=== PATIENT | female | born 1945 | race Caucasian/White ===

== ENCOUNTER → 2017-03-16 | Outpatient (CLI) | payer MEDICARE, BC, OTHER ==
--- NOTE | 2017-03-18 08:17 | MM ---
Reason for exam: screening (asymptomatic). Last mammogram was performed 1 year and 5 months ago. History: Patient is postmenopausal. Family history of breast cancer in paternal cousin at age 40. Took estrogen for 2 years. Took progesterone for 2 years. Physical Findings: A clinical breast exam by your physician is recommended on an annual basis and results should be correlated with mammographic findings. MG 3D Screening Mammo W/Cad Bilateral CC and MLO view(s) were taken. Prior study comparison: October 07, 2015, bilateral MG 3d screening mammo w/cad. October 05, 2014, bilateral MG screening mammo w CAD. There are scattered fibroglandular densities. No suspicious abnormality. No significant changes when compared with prior studies. ASSESSMENT: Negative, BI-RAD 1 RECOMMENDATION: Routine screening mammogram of both breasts in 1 year.
== END | disposition home or self-care (01) ==
LOC: RADMAMWWP 10:59
PROVIDERS: ATTEND Internal Medicine
DX: Z12.31 Encounter for screening mammogram for malignant neoplasm of breast (principal)
CPT/HCPCS: 77063; G0202

== ENCOUNTER → 2018-04-22 | Outpatient (CLI) | payer MEDICARE, BC, OTHER ==
[2018-04-22 13:31] LABS: Basophils # (A) 0.1 k/uL (0-0.2); Basophils % (A) 1 %; Eosinophils # (A) 0.5 k/uL (0-0.7); Eosinophils % (A) 4 %; HCT 45.5 % (34.0-46.0); HGB 14.9 gm/dL (11.4-16.0); Lymphocytes # (A) 1.9 k/uL (1.0-4.8); Lymphocytes % (A) 17 %; MCH 31.5 pg (25.0-35.0); MCHC 32.7 g/dL (31.0-37.0); MCV 96.4 fL (80.0-100.0); Mean Platelet Volume 6.9; Monocytes # (A) 1.1 k/uL (0-1.0); Monocytes % (A) 10 %; Neutrophils # (A) 7.3 k/uL (1.3-7.7); Neutrophils % (A) 66 %; Platelet Count 268 k/uL (150-450); RBC 4.72 m/uL (3.80-5.40); RDW 14.4 % (11.5-15.5); WBC 11.2 k/uL (3.8-10.6)
[2018-04-22 19:14] LABS: Albumin 4.3 g/dL (3.80-4.90); Albumin/Globulin Ratio 2.05 (1.20-2.10); Anion Gap 8.8 mmol/L (4.00-12.00); Calcium 9.3 mg/dL (8.7-10.3); Carbon Dioxide 30.2 mmol/L (21.6-31.8); Globulin 2.1 g/dL (2.1-3.7); Potassium 3.8 mmol/L (3.5-5.5); Total Bilirubin 0.8 mg/dL (0.2-1.2); Total Protein 6.4 g/dL (6.2-8.2)
== END ==
LOC: LABWHC1 12:18
PROVIDERS: ATTEND Internal Medicine
DX: I10 Essential (primary) hypertension (principal); E78.2 Mixed hyperlipidemia; M10.00 Idiopathic gout, unspecified site
CPT/HCPCS: 36415; 80053; 84443; 84550; 85025

== ENCOUNTER → 2018-05-20 | Outpatient (CLI) | payer MEDICARE, BC, OTHER ==
--- NOTE | 2018-05-23 10:51 | MM ---
Reason for exam: screening (asymptomatic). Last mammogram was performed 1 year and 2 months ago. History: Patient is postmenopausal. Family history of breast cancer in paternal cousin at age 40. Took estrogen for 2 years. Took progesterone for 2 years. Physical Findings: A clinical breast exam by your physician is recommended on an annual basis and results should be correlated with mammographic findings. MG 3D Screening Mammo W/Cad Bilateral CC and MLO view(s) were taken. Prior study comparison: March 16, 2017, bilateral MG 3d screening mammo w/cad. October 07, 2015, bilateral MG 3d screening mammo w/cad. There are scattered fibroglandular densities. No significant changes when compared with prior studies. ASSESSMENT: Benign, BI-RAD 2 RECOMMENDATION: Routine screening mammogram of both breasts in 1 year.
== END | disposition home or self-care (01) ==
LOC: RADMAMWWP 13:37
PROVIDERS: ATTEND Internal Medicine
DX: Z12.31 Encounter for screening mammogram for malignant neoplasm of breast (principal)
CPT/HCPCS: 77063; 77067

== ENCOUNTER → 2019-06-20 | Outpatient (CLI) | payer MEDICARE, BC, OTHER ==
--- NOTE | 2019-06-20 10:44 | XR ---
EXAMINATION TYPE: XR chest 2V DATE OF EXAM: 06/20/2019 COMPARISON: 05/19/2011 TECHNIQUE: PA and lateral views submitted. HISTORY: Cough FINDINGS: The lungs are clear and there is no pneumothorax, pleural effusion, or focal pneumonia. Atheroscler otic change aorta. Mild cardiomegaly. Surgical clips in the abdomen. Hypertrophic and degenerative ch elbert of the spine. IMPRESSION: 1. No acute process.
== END | disposition home or self-care (01) ==
LOC: RADXRMAIN 10:12
PROVIDERS: ATTEND Internal Medicine
DX: R05 Cough (principal)
CPT/HCPCS: 71046

== ENCOUNTER → 2019-07-14 | Outpatient (CLI) | payer MEDICARE, BC, OTHER ==
--- NOTE | 2019-07-17 14:18 | MM ---
Reason for exam: screening (asymptomatic). Last mammogram was performed 1 year and 2 months ago. History: Patient is postmenopausal. Family history of breast cancer in paternal cousin at age 40. Took estrogen for 2 years. Took progesterone for 2 years. Physical Findings: A clinical breast exam by your physician is recommended on an annual basis and results should be correlated with mammographic findings. MG 3D Screening Mammo W/Cad Bilateral CC and MLO view(s) were taken. Prior study comparison: May 20, 2018, bilateral MG 3d screening mammo w/cad. March 16, 2017, bilateral MG 3d screening mammo w/cad. There are scattered fibroglandular densities. There is no discrete abnormality. No significant changes when compared with prior studies. ASSESSMENT: Negative, BI-RAD 1 RECOMMENDATION: Routine screening mammogram of both breasts in 1 year.
== END | disposition home or self-care (01) ==
LOC: RADMAMWWP 13:34
PROVIDERS: ATTEND Internal Medicine
DX: Z12.31 Encounter for screening mammogram for malignant neoplasm of breast (principal)
CPT/HCPCS: 77063; 77067

== ENCOUNTER → 2019-12-19 | Outpatient (CLI) | payer MEDICARE, OTHER ==
--- NOTE | 2019-12-19 16:13 | CT ---
EXAMINATION TYPE: CT angio chest DATE OF EXAM: 12/19/2019 COMPARISON: Correlation cardiac echo report from 11/20/2019 suggesting an aortic root dimension of 4.7 cm. HISTORY: 74-year-old female I71.2 Thoracic aortic aneurysm w/o rupture. TECHNIQUE: Contiguous axial scanning of the chest performed with IV Contrast, patient injected with 1 00 mL of Isovue 370. Coronal/sagittal MIP reconstructions performed. 3-D reconstructions generated on dedicated independent workstation. CT DLP: 529.0 mGycm Automated exposure control for dose reduction was used. FINDINGS: Heart upper limits of normal in size. There is some left atrial dilatation. No pericardial effusion. Maximal aortic root caliber measured at 3.6 cm (sagittal image 52) Ascending aorta ectatic at 3.9 cm. Mild otoscopic arch calcifications with conventional branching anatomy. Upper descending thoracic aorta borderline ectatic at 2.5 cm. Lower descending thoracic aorta normal caliber at 2.1 cm. No thoracic lymphadenopathy by CT size criteria. No consolidation or pleural effusion. Some strandy atelectasis at the posterior lung bases. Small hiatal hernia. Slight 9 mm nodularity of the left adrenal gland, axial image 54. Cholecystectomy clips. Bones: Moderate endplate spondylosis mid to lower thoracic spine. IMPRESSION: 1. MAXIMAL MEASURED AORTIC CALIBER ON THE CT IMAGES IS 3.6 CM WHICH IS MILDLY ECTATIC. 2. ADDITIONAL ECTATIC ASCENDING AORTA 3.9 CM. 3. BORDERLINE HEART SIZE WITH SOME LEFT ATRIAL DILATATION. 4. SMALL HIATAL HERNIA. 5. 9 MM LEFT ADRENAL NODULE IS NONSPECIFIC. A 12 MONTH FOLLOW-UP EXAM TO ENSURE STABILITY.
== END | disposition home or self-care (01) ==
LOC: RADCTMAIN 12:47
PROVIDERS: ATTEND Nurse Practitioner Adult Health
DX: I77.810 Thoracic aortic ectasia (principal); I51.7 Cardiomegaly; Z88.5 Allergy status to narcotic agent; Z88.8 Allergy status to other drugs, medicaments and biological substances
CPT/HCPCS: 82565; 84520; 71275; 36415; Q9967

== ENCOUNTER → 2020-01-18 | Outpatient (CLI) | payer MEDICARE, OTHER ==
--- NOTE | 2020-01-18 14:54 | US ---
EXAMINATION TYPE: US kidneys/renal and bladder DATE OF EXAM: 01/18/2020 COMPARISON: CT Chest December 19, 2019. CLINICAL HISTORY: R10.9 Left flank pain. Pt states left flank pain that has now stopped EXAM MEASUREMENTS: Right Kidney: 9.7 x 4.8 x 4.7 cm Left Kidney: 10.3 x 5.4 x 4.1 cm Right Kidney: Slight renal pelvic fullness, otherwise appeared wnl Left Kidney: Slight renal pelvic fullness, otherwise appeared wnl Bladder: wnl Bilateral Jets seen: Yes The urinary bladder is satisfactorily distended. Bilateral ureteral jets are seen. Some fullness of the bilateral renal pelvises. No concerning renal masses on images saved. IMPRESSION: Suspect new mild bilateral hydronephrosis but visualization of bilateral distal ureter je ts suggest complete ureter obstruction is not present.
== END | disposition home or self-care (01) ==
LOC: RADUSWWP 14:11
PROVIDERS: ATTEND Internal Medicine
DX: R10.9 Unspecified abdominal pain (principal)
CPT/HCPCS: 76770

== ENCOUNTER → 2020-09-19 | Outpatient (CLI) | payer MEDICARE, OTHER ==
--- NOTE | 2020-09-23 09:49 | MM ---
Reason for exam: screening (asymptomatic). Last mammogram was performed 1 year and 2 months ago. History: Patient is postmenopausal. Family history of breast cancer in paternal cousin at age 40. Took estrogen for 2 years. Took progesterone for 2 years. Physical Findings: A clinical breast exam by your physician is recommended on an annual basis and results should be correlated with mammographic findings. MG 3D Screening Mammo W/Cad Bilateral CC and MLO view(s) were taken. Prior study comparison: July 14, 2019, bilateral MG 3d screening mammo w/cad. May 20, 2018, bilateral MG 3d screening mammo w/cad. There are scattered fibroglandular densities. No significant changes when compared with prior studies. ASSESSMENT: Benign, BI-RAD 2 RECOMMENDATION: Routine screening mammogram of both breasts in 1 year.
== END | disposition home or self-care (01) ==
LOC: RADMAMWWP 09:10
PROVIDERS: ATTEND Internal Medicine
DX: Z12.31 Encounter for screening mammogram for malignant neoplasm of breast (principal); Z78.0 Asymptomatic menopausal state; Z80.3 Family history of malignant neoplasm of breast
CPT/HCPCS: 77063; 77067

== ENCOUNTER → 2021-01-13 | Outpatient (CLI) | payer MEDICARE, OTHER ==
--- NOTE | 2021-01-13 15:54 | CT ---
CT CHEST FOR PULMONARY EMBOLISM. EXAMINATION TYPE: CT angio chest DATE OF EXAM: 01/13/2021 INDICATION: Thoracic aortic aneurysm w/out rupture. Pt not reporting any issues. CT DLP: 988.80 mGycm, Automated exposure control for dose reduction was used. CONTRAST: Patient injected with 100 mL of Isovue 370. COMPARISON: 12/19/2019 TECHNIQUE: CT of the chest is performed on a spiral scan at 2 mm thick sections. Study is performed with intravenous contrast timed for evaluation of thoracic aneurysm. This will limit additional port ions of the evaluation. 3-D MIP images reconstructed by the technologist are reviewed on the compute r in the coronal and sagittal planes. FINDINGS: No persistent filling defects are evident to suggest an acute pulmonary embolism. No mediastinal or hilar adenopathy enlarged by CT criteria is evident. The main pulmonary artery roberto meter at the bifurcation is 2.5 cm. There is mild cardiomegaly. Aorta: The aorta at the aortic root measures 2.9 cm. Previous measurement 3.2. The aorta at the main pulmonary artery 3.6 cm. Previous measurement 3.9. Transverse dimension of the aorta at the aortic ar ch is 2.4 cm. Descending thoracic aorta just above the diaphragm is 2.5 cm. Previous measurement 2.1 cm Lung windows are clear. Limited CT section through the upper abdomen. There is fatty infiltration through the pancreas. Gallb ladder is surgically absent. IMPRESSIONS: 1. Current thoracic aortic measurements are generally smaller than the previous measurements. There i s mild fusiform prominence of the mid descending thoracic aorta at the main pulmonary artery currentl y measuring 3.6 cm. Monitoring can be performed.
== END | disposition home or self-care (01) ==
LOC: RADCTMAIN 13:49
PROVIDERS: ATTEND Internal Medicine Interventional Cardiology
DX: I71.2 Thoracic aortic aneurysm, without rupture (principal)
CPT/HCPCS: 82565; 84520; 71275; 36415; Q9967

== ENCOUNTER → 2021-10-22 | Outpatient (CLI) | payer MEDICARE, OTHER, BC ==
--- NOTE | 2021-10-24 11:58 | MM ---
Reason for exam: screening (asymptomatic). Last mammogram was performed 1 year and 1 month ago. History: Patient is postmenopausal. Family history of breast cancer in paternal cousin at age 40. Took estrogen for 2 years. Took progesterone for 2 years. Physical Findings: A clinical breast exam by your physician is recommended on an annual basis and results should be correlated with mammographic findings. MG 3D Screening Mammo W/Cad Bilateral CC and MLO view(s) were taken. Prior study comparison: September 19, 2020, bilateral MG 3d screening mammo w/cad. July 14, 2019, bilateral MG 3d screening mammo w/cad. There are scattered fibroglandular densities. No significant changes when compared with prior studies. ASSESSMENT: Negative, BI-RAD 1 RECOMMENDATION: Routine screening mammogram of both breasts in 1 year.
== END | disposition home or self-care (01) ==
LOC: RADMAMWWP 13:09
PROVIDERS: ATTEND Internal Medicine
DX: Z12.31 Encounter for screening mammogram for malignant neoplasm of breast (principal)
CPT/HCPCS: 77063; 77067

== ENCOUNTER 2022-02-24 15:30 | Emergency (ER) | payer MEDICARE, BC, OTHER ==
[2022-02-24] MEDS ORDERED: SODIUM CHLORIDE 0.9% 1,000 ML IV STA (15:52)
--- NOTE | 2022-02-24 15:56 | ED ---
Weakness HPI - General Chief complaint: Weakness Stated complaint: COVID+ Time Seen by Provider: 02/24/22 15:32 Source: patient Mode of arrival: EMS - History of Present Illness Initial comments: This patient is a 76-year-old woman who complains of having generalized weakness, fatigue, and feeling like she is dehydrated. The patient states that she has COVID-19 infection. Symptoms started nearly one week ago. She states that over the last 2-3 days she has noted that her appetite is gone she is not taking much to eat or drink and she is feeling dehydrated. Today she is not able to move around the house due to generalized weakness and fatigue. Patient denies cristian dyspnea. There is mild cough, nonproductive. No hemoptysis. No leg pain or swelling. She has not noted change in urination or bowel movements. MD Complaint: generalized weakness -: days(s) Location: generalized Severity: moderate Severity scale (1-10): 0 Consistency: constant Improves with: none Worsens with: exertion Associated Symptoms: fever/chills, myalgias - Related Data Home Medications Medication Instructions Recorded Confirmed ALPRAZolam [Xanax] 0.25 mg PO BID 02/24/22 02/24/22 Losartan/Hydrochlorothiazide 0.5 tab PO BID 02/24/22 02/24/22 [Losartan-Hctz 50-12.5 mg Tab] Meclizine [Antivert] 12.5 mg PO TID PRN 02/24/22 02/24/22 Potassium Chloride ER [K-Dur 20] 20 meq PO BID 02/24/22 02/24/22 allopurinoL 300 mg PO HS 02/24/22 02/24/22 carvediloL [Coreg] 12.5 mg PO BID 02/24/22 02/24/22 Allergies Allergy/AdvReac Type Severity Reaction Status Date / Time atorvastatin [From Lipitor] Allergy Rash/Hives Verified 02/24/22 15:41 codeine AdvReac Nausea & Verified 02/24/22 15:41 Vomiting Review of Systems ROS Statement: Those systems with pertinent positive or pertinent negative responses have been documented in the HPI. ROS Other: All systems not noted in ROS Statement are negative. Constitutional: Reports: fever, chills, weakness Eyes: Denies: vision change ENT: Denies: throat pain, congestion Respiratory: Reports: cough. Denies: dyspnea, wheezes, hemoptysis Cardiovascular: Denies: chest pain, palpitations, edema, syncope Gastrointestinal: Denies: abdominal pain, nausea, vomiting, diarrhea Genitourinary: Denies: dysuria, hematuria Musculoskeletal: Denies: back pain Skin: Denies: rash Neurological: Denies: headache, weakness, numbness, confusion Past Medical History Past Medical History: Hypertension Additional Past Medical History / Comment(s): aortic aneyurism, GOUT. History of Any Multi-Drug Resistant Organisms: None Reported Past Surgical History: Cholecystectomy, Hysterectomy, Orthopedic Surgery Past Psychological History: Anxiety Smoking Status: Never smoker Past Alcohol Use History: None Reported Past Drug Use History: None Reported Course Vital Signs 02/24/22 02/24/22 02/24/22 15:35 16:09 16:13 Temperature 98.3 F 99.2 F Pulse Rate 81 78 75 Respiratory 18 20 20 Rate Blood Pressure 113/67 113/67 120/61 O2 Sat by Pulse 97 96 99 Oximetry 02/24/22 02/24/22 02/24/22 16:30 16:50 17:10 Temperature Pulse Rate 75 76 76 Respiratory 20 20 20 Rate Blood Pressure 120/61 138/65 129/59 O2 Sat by Pulse 95 96 Oximetry 02/24/22 18:49 Temperature 99.1 F Pulse Rate 79 Respiratory 18 Rate Blood Pressure 124/67 O2 Sat by Pulse 95 Oximetry EKG Findings - EKG Results: EKG: interpreted by ERMD, sinus rhythm (Rate 78 bpm), normal axis - Blocks, [place], Hypertrophy, ST Abn: AV and intraventricular conduction: intraventricular conduction delay Medical Decision Making - Medical Decision Making This patient is 76-year-old woman with covid infection, complaining of feeling dehydrated. Patient is given hydration starting by EMS and then continued here. Also given potassium replacement. Discussed further care with the patient, she is refusing to take the antiviral treatment. At this point will follow up, discussed appropriate return parameters including dyspnea and other concerning symptoms. - Lab Data Result diagrams: 02/24/22 15:58 02/24/22 15:58 Lab Results 02/24/22 02/24/22 02/24/22 Range/Units 15:58 15:58 15:58 WBC 6.7 (3.8-10.6) k/uL RBC 4.60 (3.80-5.40) m/uL Hgb 14.5 (11.4-16.0) gm/dL Hct 43.5 (34.0-46.0) % MCV 94.5 (80.0-100.0) fL MCH 31.6 (25.0-35.0) pg MCHC 33.5 (31.0-37.0) g/dL RDW 15.2 (11.5-15.5) % Plt Count 136 L (150-450) k/uL MPV 8.7 Neutrophils % 66 % Lymphocytes % 12 % Monocytes % 16 % Eosinophils % 0 % Basophils % 3 % Neutrophils # 4.4 (1.3-7.7) k/uL Lymphocytes # 0.8 L (1.0-4.8) k/uL Monocytes # 1.1 H (0-1.0) k/uL Eosinophils # 0.0 (0-0.7) k/uL Basophils # 0.2 (0-0.2) k/uL PT 10.5 (9.0-12.0) sec INR 1.0 (<1.2) APTT 23.7 (22.0-30.0) sec D-Dimer 0.31 (<0.60) mg/L FEU Sodium 135 L (137-145) mmol/L Potassium 3.0 L (3.5-5.1) mmol/L Chloride 96 L (98-107) mmol/L Carbon Dioxide 25 (22-30) mmol/L Anion Gap 14 mmol/L BUN 29 H (7-17) mg/dL Creatinine 1.12 H (0.52-1.04) mg/dL Est GFR (CKD-EPI)AfAm 55 (>60 ml/min/1.73 sqM) Est GFR (CKD-EPI)NonAf 48 (>60 ml/min/1.73 sqM) Glucose 108 H (74-99) mg/dL Plasma Lactic Acid Shaun (0.7-2.0) mmol/L Calcium 8.6 (8.4-10.2) mg/dL Magnesium 1.9 (1.6-2.3) mg/dL Total Bilirubin 1.0 (0.2-1.3) mg/dL AST 80 H (14-36) U/L ALT 33 (4-34) U/L Alkaline Phosphatase 111 (38-126) U/L Troponin I (0.000-0.034) ng/mL NT-Pro-B Natriuret Pep pg/mL Total Protein 6.5 (6.3-8.2) g/dL Albumin 3.9 (3.5-5.0) g/dL Urine Color Urine Appearance (Clear) Urine pH (5.0-8.0) Ur Specific [place] (1.001-1.035) Urine Protein (Negative) Urine Glucose (UA) (Negative) Urine Ketones (Negative) Urine Blood (Negative) Urine Nitrite (Negative) Urine Bilirubin (Negative) Urine Urobilinogen (<2.0) mg/dL Ur Leukocyte Esterase (Negative) Urine RBC (0-5) /hpf Urine WBC (0-5) /hpf Ur Squamous Epith Cells (0-4) /hpf Urine Bacteria (None) /hpf Urine Mucus (None) /hpf 02/24/22 02/24/22 02/24/22 Range/Units 15:58 15:58 15:58 WBC (3.8-10.6) k/uL RBC (3.80-5.40) m/uL Hgb (11.4-16.0) gm/dL Hct (34.0-46.0) % MCV (80.0-100.0) fL MCH (25.0-35.0) pg MCHC (31.0-37.0) g/dL RDW (11.5-15.5) % Plt Count (150-450) k/uL MPV Neutrophils % % Lymphocytes % % Monocytes % % Eosinophils % % Basophils % % Neutrophils # (1.3-7.7) k/uL Lymphocytes # (1.0-4.8) k/uL Monocytes # (0-1.0) k/uL Eosinophils # (0-0.7) k/uL Basophils # (0-0.2) k/uL PT (9.0-12.0) sec INR (<1.2) APTT (22.0-30.0) sec D-Dimer (<0.60) mg/L FEU Sodium (137-145) mmol/L Potassium (3.5-5.1) mmol/L Chloride (98-107) mmol/L Carbon Dioxide (22-30) mmol/L Anion Gap mmol/L BUN (7-17) mg/dL Creatinine (0.52-1.04) mg/dL Est GFR (CKD-EPI)AfAm (>60 ml/min/1.73 sqM) Est GFR (CKD-EPI)NonAf (>60 ml/min/1.73 sqM) Glucose (74-99) mg/dL Plasma Lactic Acid Shaun 1.4 (0.7-2.0) mmol/L Calcium (8.4-10.2) mg/dL Magnesium (1.6-2.3) mg/dL Total Bilirubin (0.2-1.3) mg/dL AST (14-36) U/L ALT (4-34) U/L Alkaline Phosphatase (38-126) U/L Troponin I 0.016 (0.000-0.034) ng/mL NT-Pro-B Natriuret Pep pg/mL Total Protein (6.3-8.2) g/dL Albumin (3.5-5.0) g/dL Urine Color Yellow Urine Appearance Cloudy H (Clear) Urine pH 5.5 (5.0-8.0) Ur Specific [place] 1.016 (1.001-1.035) Urine Protein Trace H (Negative) Urine Glucose (UA) Negative (Negative) Urine Ketones 1+ H (Negative) Urine Blood Trace H (Negative) Urine Nitrite Negative (Negative) Urine Bilirubin 1+ H (Negative) Urine Urobilinogen 2.0 (<2.0) mg/dL Ur Leukocyte Esterase Small H (Negative) Urine RBC 2 (0-5) /hpf Urine WBC 3 (0-5) /hpf Ur Squamous Epith Cells 2 (0-4) /hpf Urine Bacteria Rare H (None) /hpf Urine Mucus Rare H (None) /hpf 02/24/22 Range/Units 15:58 WBC (3.8-10.6) k/uL RBC (3.80-5.40) m/uL Hgb (11.4-16.0) gm/dL Hct (34.0-46.0) % MCV (80.0-100.0) fL MCH (25.0-35.0) pg MCHC (31.0-37.0) g/dL RDW (11.5-15.5) % Plt Count (150-450) k/uL MPV Neutrophils % % Lymphocytes % % Monocytes % % Eosinophils % % Basophils % % Neutrophils # (1.3-7.7) k/uL Lymphocytes # (1.0-4.8) k/uL Monocytes # (0-1.0) k/uL Eosinophils # (0-0.7) k/uL Basophils # (0-0.2) k/uL PT (9.0-12.0) sec INR (<1.2) APTT (22.0-30.0) sec D-Dimer (<0.60) mg/L FEU Sodium (137-145) mmol/L Potassium (3.5-5.1) mmol/L Chloride (98-107) mmol/L Carbon Dioxide (22-30) mmol/L Anion Gap mmol/L BUN (7-17) mg/dL Creatinine (0.52-1.04) mg/dL Est GFR (CKD-EPI)AfAm (>60 ml/min/1.73 sqM) Est GFR (CKD-EPI)NonAf (>60 ml/min/1.73 sqM) Glucose (74-99) mg/dL Plasma Lactic Acid Shaun (0.7-2.0) mmol/L Calcium (8.4-10.2) mg/dL Magnesium (1.6-2.3) mg/dL Total Bilirubin (0.2-1.3) mg/dL AST (14-36) U/L ALT (4-34) U/L Alkaline Phosphatase (38-126) U/L Troponin I (0.000-0.034) ng/mL NT-Pro-B Natriuret Pep 110 pg/mL Total Protein (6.3-8.2) g/dL Albumin (3.5-5.0) g/dL Urine Color Urine Appearance (Clear) Urine pH (5.0-8.0) Ur Specific [place] (1.001-1.035) Urine Protein (Negative) Urine Glucose (UA) (Negative) Urine Ketones (Negative) Urine Blood (Negative) Urine Nitrite (Negative) Urine Bilirubin (Negative) Urine Urobilinogen (<2.0) mg/dL Ur Leukocyte Esterase (Negative) Urine RBC (0-5) /hpf Urine WBC (0-5) /hpf Ur Squamous Epith Cells (0-4) /hpf Urine Bacteria (None) /hpf Urine Mucus (None) /hpf Disposition Clinical Impression: COVID-19, Hypokalemia Disposition: HOME SELF-CARE Condition: Good Instructions (If sedation given, give patient instructions): Dehydration (ED), Hypokalemia (ED), COVID-19 (Coronavirus Disease 2019) (ED) Is patient prescribed a controlled substance at d/c from ED?: No Referrals: Miguelito Palmer MD [Primary Care Provider] - 1-2 days
[2022-02-24 16:06] LABS: Basophils # (A) 0.2 k/uL (0-0.2); Basophils % (A) 3 %; Eosinophils % (A) 0 %; HCT 43.5 % (34.0-46.0); HGB 14.5 gm/dL (11.4-16.0); Lymphocytes # (A) 0.8 k/uL (1.0-4.8); Lymphocytes % (A) 12 %; MCH 31.6 pg (25.0-35.0); MCHC 33.5 g/dL (31.0-37.0); MCV 94.5 fL (80.0-100.0); Mean Platelet Volume 8.7; Monocytes # (A) 1.1 k/uL (0-1.0); Monocytes % (A) 16 %; Neutrophils # (A) 4.4 k/uL (1.3-7.7); Neutrophils % (A) 66 %; Platelet Count 136 k/uL (150-450); RDW 15.2 % (11.5-15.5); WBC 6.7 k/uL (3.8-10.6)
[2022-02-24 16:14] LABS: Albumin 3.9 g/dL (3.5-5.0); Calcium 8.6 mg/dL (8.4-10.2); Magnesium 1.9 mg/dL (1.6-2.3); Total Protein 6.5 g/dL (6.3-8.2)
[2022-02-24 16:24] LABS: Partial Thromboplastin Time 23.7 sec (22.0-30.0); Prothrombin Time 10.5 sec (9.0-12.0)
--- NOTE | 2022-02-24 16:40 | XR ---
EXAMINATION TYPE: XR chest 2V DATE OF EXAM: 02/24/2022 COMPARISON: None HISTORY: Weakness TECHNIQUE: FINDINGS: There is no heart failure nor confluent pneumonic infiltrate. Costophrenic angles are clear . There are chest leads. Bony thorax is intact. IMPRESSION: No active cardiopulmonary disease. Normal heart
[2022-02-24 17:38] LABS: Appearance,Urine Cloudy (Clear); Bacteria,Urine Rare /hpf; Bilirubin,Urine 1+ (Negative); Blood,Urine Trace (Negative); Color,Urine Yellow; Glucose,Urine (UA) Negative (Negative); Ketones,Urine 1+ (Negative); Leukocyte Esterase,Urine Small (Negative); Mucus,Urine Rare /hpf; Nitrite,Urine Negative (Negative); PH, Urine 5.5 (5.0-8.0); Protein,Urine Trace (Negative); RBC,Urine 2 /hpf (0-5); Specific Gravity,Urine 1.016 (1.001-1.035); Squamous Epithelial Cell,Urine 2 /hpf (0-4); WBC,Urine 3 /hpf (0-5)
[2022-02-24 18:50] VITALS: TEMP 99.1
[2022-02-24] MEDS ORDERED: POTASSIUM BICARBONATE/CIT AC 20 MEQ TABLET.EFF PO ONE (20:00)
[2022-02-24 21:19] VITALS: BP 127/66; PULSE 71; RESP 15
== END 2022-02-24 21:19 | disposition home or self-care (01) ==
LOC: EC 15:30
DX: U07.1 COVID-19 (principal); E87.6 Hypokalemia; I10 Essential (primary) hypertension; F41.9 Anxiety disorder, unspecified; Z79.811 Long term (current) use of aromatase inhibitors; Z88.8 Allergy status to other drugs, medicaments and biological substances; Z88.5 Allergy status to narcotic agent
CPT/HCPCS: 36415; 71046; 80053; 81001; 83605; 83735; 83880; 84484; 85025; 85379; 85610; 85730; 93005; 96360; 99285

== ENCOUNTER 2022-08-20 08:14 | Observation (INO) | payer BC, MEDICARE, OTHER ==
[2022-08-20] MEDS ORDERED: ASPIRIN 81 MG PO STA (08:29)
--- NOTE | 2022-08-20 08:32 | ED ---
General Adult HPI - General Chief complaint: Chest Pain Stated complaint: chest pain Time Seen by Provider: 08/20/22 08:20 Source: patient, RN notes reviewed, old records reviewed Mode of arrival: ambulatory Limitations: no limitations - History of Present Illness Initial comments: This is a 76-year-old female who presents emergency department stating that she has chest discomfort that started last night [place]. Patient states it comes and goes. He does seem somewhat positional. Patient states she also has had quite a bit of gas and a lot of burping. Patient denies any difficulty breathing shortest breath per patient is a diaphoretic episode. Patient denies any nausea vomiting diarrhea. Patient states she does have high blood pressure and did take her medicines today. Patient also has a family history of heart disease. Patient states she was diagnosed with aortic aneurysm but she states is under 4 cm. Patient denies any abdominal pain patient denies any nausea vomiting diarrhea. Patient denies any recent fever chills or cough. - Related Data Home Medications Medication Instructions Recorded Confirmed ALPRAZolam [Xanax] 0.25 mg PO BID@0800,199902/24/22 08/20/22 Losartan/Hydrochlorothiazide 0.5 tab PO DAILY@0800 02/24/22 08/20/22 [Losartan-Hctz 50-12.5 mg Tab] Potassium Chloride ER [K-Dur 20] 20 meq PO BID@0800,1400 02/24/22 08/20/22 allopurinoL 300 mg PO DAILY@0800 02/24/22 08/20/22 carvediloL [Coreg] 12.5 mg PO BID@799,199902/24/22 08/20/22 Ergocalciferol [Vitamin D2 (1250 1,250 mcg PO KIRAN 08/20/22 08/20/22 Mcg = 74292 Iu)] Allergies Allergy/AdvReac Type Severity Reaction Status Date / Time atorvastatin [From Lipitor] Allergy Rash/Hives Verified 08/20/22 09:01 codeine AdvReac Nausea & Verified 08/20/22 09:01 Vomiting Review of Systems ROS Statement: Those systems with pertinent positive or pertinent negative responses have been documented in the HPI. ROS Other: All systems not noted in ROS Statement are negative. Past Medical History Past Medical History: Heart Failure, Hyperlipidemia, Hypertension Additional Past Medical History / Comment(s): aortic aneyurism, GOUT. History of Any Multi-Drug Resistant Organisms: None Reported Past Surgical History: Cholecystectomy, Hysterectomy, Orthopedic Surgery Past Psychological History: Anxiety Smoking Status: Never smoker Past Alcohol Use History: None Reported Past Drug Use History: None Reported General Exam - General Exam Comments Initial Comments: GENERAL: Patient is well-developed and well-nourished. Patient is nontoxic and well- hydrated and is in mild distress. ENT: Neck is soft and supple. No significant lymphadenopathy is noted. Oropharynx is clear. Moist mucous membranes. Neck has full range of motion without eliciting any pain. EYES: The sclera were anicteric and conjunctiva were pink and moist. Extraocular movements were intact and pupils were equal round and reactive to light. Eyelids were unremarkable. PULMONARY: Unlabored respirations. Good breath sounds bilaterally. No audible rales rhonchi or wheezing was noted. CARDIOVASCULAR: There is a regular rate and rhythm without any murmurs gallops or rubs. ABDOMEN: Soft and nontender with normal bowel sounds. SKIN: Skin is clear with no lesions or rashes and otherwise unremarkable. NEUROLOGIC: Patient is alert and oriented x3. Cranial nerves II through XII are grossly intact. Motor and sensory are also intact. Normal speech, volume and content. Symmetrical smile. MUSCULOSKELETAL: Normal extremities with adequate strength and full range of motion. No lower extremity swelling or edema. No calf tenderness. LYMPHATICS: No significant lymphadenopathy is noted PSYCHIATRIC: Normal psychiatric evaluation. Limitations: no limitations Course Vital Signs 08/20/22 08/20/22 08:16 09:30 Temperature 98.3 F Pulse Rate 90 71 Respiratory 20 18 Rate Blood Pressure 165/103 143/68 O2 Sat by Pulse 97 96 Oximetry Medical Decision Making - Medical Decision Making EKG was interpreted by myself shows a sinus rhythm at 85 bpm MD interval 297 0.4 QT Interval 375 QTC Is 417. Patient's EKG Shows a Left Bundle Branch Block. Was pt. sent in by a medical professional or institution (, PA, GLASS GRINDER, urgent care, hospital, or retirement...) When possible be specific @ -No Did you speak to anyone other than the patient for history (EMS, parent, family, police, friend...)? What history was obtained from this source @ -No Did you review nursing and triage notes (agree or disagree)? Why? @ -I reviewed and agree with nursing and triage notes Were old charts reviewed (outside hosp., previous admission, EMS record, old EKG, old radiological studies, urgent care reports/EKG's, retirement records)? Report findings @ -I reviewed prior laboratory results and prior EKGs Differential Diagnosis (chest pain, altered mental status, abdominal pain women, abdominal pain men, vaginal bleeding, weakness, fever, dyspnea, syncope, headache, dizziness, GI bleed, back pain, seizure, CVA, palpatations, mental health, musculoskeletal)? @ -Differential Chest Pain: Stable Angina, Unstable Angina, STEMI, NSTEMI Aortic Dissection, Pneumothorax, Musculoskeletal, Esophageal Spasm GERD, Cholecystitis, Pancreatitis, Zoster, this is not meant to be an all-inclusive list. EKG interpreted by me (3pts min.). @ -As above X-rays interpreted by me (1pt min.). @ -Chest x-ray was interpreted by myself and it showed no acute abnormality CT interpreted by me (1pt min.). @ -None done U/S interpreted by me (1pt. min.). @ -None done What testing was considered but not performed or refused? (CT, X-rays, U/S, labs)? Why? @ -None What meds were considered but not given or refused? Why? @ -None Did you discuss the management of the patient with other professionals (professionals i.e. , PA, GLASS GRINDER, lab, RT, psych nurse, nephrology social worker, community support associate, teacher, chief security and safety officer, case filler)? Give summary @ -I spoke with Dr. Palmer the primary medical care doctor and he agreed to admit the patient Was smoking cessation discussed for >3mins.? @ -No Was critical care preformed (if so, how long)? @ -No Were there social determinants of health that impacted care today? How? (Homelessness, low income, unemployed, alcoholism, drug addiction, transportation, low edu. Level, literacy, decrease access to med. care, senior living, rehab)? @ -No Was there de-escalation of care discussed even if they declined (Discuss DNR or withdrawal of care, Hospice)? DNR status @ -No What co-morbidities impacted this encounter? (DM, HTN, Smoking, COPD, CAD, Cancer, CVA, ARF, Chemo, Hep., AIDS, mental health diagnosis, sleep apnea, morbid obesity)? @ -Hypertension, family history of heart disease Was patient admitted / discharged? Hospital course, mention meds given and route, prescriptions, significant lab abnormalities, going to OR and other pertinent info. @ -Patient was seen in the hospital was having continued intermittent chest pain. I spoke with Dr. Palmer he agreed to admit the patient admitted the patient wrote admitting orders laboratory results were within normal range and chest x-ray showed no acute abnormality and EKG showed no obvious abnormality Undiagnosed new problem with uncertain prognosis? @ -No Drug Therapy requiring intensive monitoring for toxicity (Heparin, Nitro, Insulin, Cardizem)? @ -No Were any procedures done? @ -No Diagnosis/symptom? @ -Chest pain Acute, or Chronic, or Acute on Chronic? @ -Acute Uncomplicated (without systemic symptoms) or Complicated (systemic symptoms)? @ -Complicated Side effects of treatment? @ -No Exacerbation, Progression, or Severe Exacerbation? @ -No Poses a threat to life or bodily function? How? (Chest pain, [place], [place], pneumonia, PE, COPD, DKA, ARF, appy, cholecystitis, CVA, Diverticulitis, Homicidal, Suicidal, threat to staff... and all critical care pts) @ -This could lead to myocardial infarction which could lead to poor perfusion end organ dysfunction - Lab Data Result diagrams: 08/20/22 08:35 08/20/22 08:35 Lab Results 08/20/22 08/20/22 08/20/22 Range/Units 08:35 08:35 08:35 WBC 10.6 (3.8-10.6) k/uL RBC 4.28 (3.80-5.40) m/uL Hgb 14.5 (11.4-16.0) gm/dL Hct 40.4 (34.0-46.0) % MCV 94.4 (80.0-100.0) fL MCH 33.9 (25.0-35.0) pg MCHC 35.9 (31.0-37.0) g/dL RDW 16.5 H (11.5-15.5) % Plt Count 320 (150-450) k/uL MPV 8.2 Neutrophils % 63 % Lymphocytes % 20 % Monocytes % 8 % Eosinophils % 4 % Basophils % 1 % Neutrophils # 6.7 (1.3-7.7) k/uL Lymphocytes # 2.1 (1.0-4.8) k/uL Monocytes # 0.9 (0-1.0) k/uL Eosinophils # 0.5 (0-0.7) k/uL Basophils # 0.1 (0-0.2) k/uL Anisocytosis Slight PT 10.3 (9.0-12.0) sec INR 1.0 (<1.2) APTT 25.0 (22.0-30.0) sec D-Dimer 0.29 (<0.60) mg/L FEU Sodium 138 (137-145) mmol/L Potassium 3.8 (3.5-5.1) mmol/L Chloride 104 (98-107) mmol/L Carbon Dioxide 30 (22-30) mmol/L Anion Gap 4 mmol/L BUN 11 (7-17) mg/dL Creatinine 0.67 (0.52-1.04) mg/dL Est GFR (CKD-EPI)AfAm >90 (>60 ml/min/1.73 sqM) Est GFR (CKD-EPI)NonAf 86 (>60 ml/min/1.73 sqM) Glucose 118 H (74-99) mg/dL Calcium 9.1 (8.4-10.2) mg/dL Magnesium 1.8 (1.6-2.3) mg/dL Total Bilirubin 1.1 (0.2-1.3) mg/dL AST 26 (14-36) U/L ALT 16 (4-34) U/L Alkaline Phosphatase 122 (38-126) U/L Troponin I (0.000-0.034) ng/mL Total Protein 6.7 (6.3-8.2) g/dL Albumin 3.9 (3.5-5.0) g/dL 08/20/22 Range/Units 08:35 WBC (3.8-10.6) k/uL RBC (3.80-5.40) m/uL Hgb (11.4-16.0) gm/dL Hct (34.0-46.0) % MCV (80.0-100.0) fL MCH (25.0-35.0) pg MCHC (31.0-37.0) g/dL RDW (11.5-15.5) % Plt Count (150-450) k/uL MPV Neutrophils % % Lymphocytes % % Monocytes % % Eosinophils % % Basophils % % Neutrophils # (1.3-7.7) k/uL Lymphocytes # (1.0-4.8) k/uL Monocytes # (0-1.0) k/uL Eosinophils # (0-0.7) k/uL Basophils # (0-0.2) k/uL Anisocytosis PT (9.0-12.0) sec INR (<1.2) APTT (22.0-30.0) sec D-Dimer (<0.60) mg/L FEU Sodium (137-145) mmol/L Potassium (3.5-5.1) mmol/L Chloride (98-107) mmol/L Carbon Dioxide (22-30) mmol/L Anion Gap mmol/L BUN (7-17) mg/dL Creatinine (0.52-1.04) mg/dL Est GFR (CKD-EPI)AfAm (>60 ml/min/1.73 sqM) Est GFR (CKD-EPI)NonAf (>60 ml/min/1.73 sqM) Glucose (74-99) mg/dL Calcium (8.4-10.2) mg/dL Magnesium (1.6-2.3) mg/dL Total Bilirubin (0.2-1.3) mg/dL AST (14-36) U/L ALT (4-34) U/L Alkaline Phosphatase (38-126) U/L Troponin I <0.012 (0.000-0.034) ng/mL Total Protein (6.3-8.2) g/dL Albumin (3.5-5.0) g/dL Disposition Clinical Impression: Chest pain Disposition: ADMITTED IP TO THIS HOSP Referrals: Miguelito Palmer MD [Primary Care Provider] - 1-2 days Time of Disposition: 10:17
[2022-08-20] MEDS: NITROGLYCERIN OINT 1 INCH/GM PACKET TOPICAL STA ×2 (08:47)
[2022-08-20 08:53] LABS: Anisocytosis Slight; Basophils # (A) 0.1 k/uL (0-0.2); Basophils % (A) 1 %; Eosinophils # (A) 0.5 k/uL (0-0.7); Eosinophils % (A) 4 %; HCT 40.4 % (34.0-46.0); HGB 14.5 gm/dL (11.4-16.0); Lymphocytes # (A) 2.1 k/uL (1.0-4.8); Lymphocytes % (A) 20 %; MCH 33.9 pg (25.0-35.0); MCHC 35.9 g/dL (31.0-37.0); MCV 94.4 fL (80.0-100.0); Mean Platelet Volume 8.2; Monocytes # (A) 0.9 k/uL (0-1.0); Monocytes % (A) 8 %; Neutrophils # (A) 6.7 k/uL (1.3-7.7); Neutrophils % (A) 63 %; Platelet Count 320 k/uL (150-450); RBC 4.28 m/uL (3.80-5.40); RDW 16.5 % (11.5-15.5); WBC 10.6 k/uL (3.8-10.6)
[2022-08-20 09:04] LABS: Prothrombin Time 10.3 sec (9.0-12.0)
[2022-08-20 09:08] LABS: ALT 16 U/L (4-34); AST 26 U/L (14-36); African American GFR (CKD) >90 (>60 ml/min/1.73 sqM); Albumin 3.9 g/dL (3.5-5.0); Alkaline Phosphatase 122 U/L (38-126); Anion Gap 4 mmol/L; Blood Urea Nitrogen 11 mg/dL (7-17); Calcium 9.1 mg/dL (8.4-10.2); Carbon Dioxide 30 mmol/L (22-30); Chloride 104 mmol/L (98-107); Glucose 118 mg/dL (74-99); Magnesium 1.8 mg/dL (1.6-2.3); Non-African American GFR(CKD) 86 (>60 ml/min/1.73 sqM); Potassium 3.8 mmol/L (3.5-5.1); Sodium 138 mmol/L (137-145); Total Bilirubin 1.1 mg/dL (0.2-1.3); Total Protein 6.7 g/dL (6.3-8.2)
--- NOTE | 2022-08-20 09:11 | XR ---
EXAMINATION TYPE: XR chest 2V DATE OF EXAM: 08/20/2022 COMPARISON: 02/24/2022 HISTORY: 76-year-old female with chest pain TECHNIQUE: PA and lateral views FINDINGS: Heart is mildly enlarged. Hazy lower lung densities relating to overlying soft tissue. Hyperinflation . No cristian consolidation or pleural effusion. Cholecystectomy clips. IMPRESSION: Mild cardiomegaly and COPD. No definite acute process.
[2022-08-20] MEDS ORDERED: NITROGLYCERIN SL TABS 0.4 MG TAB SUBLINGUAL PRN (10:17)
[2022-08-20] MEDS: NITROGLYCERIN OINT 1 INCH/GM PACKET TOPICAL SCH ×3 (13:05→20:17)
--- NOTE | 2022-08-20 13:28 | P.CRDCN ---
History of Present Illness Consult date: 08/20/22 Consult reason: chest pain History of present illness: History of present illness: This is a 76-year-old female patient of Dr. Velázquez with past medical history of HTN, dyslipidemia. She has had mild stable dyspnea on exertion and followed by Dr. Velázquez, last office visit was 06/18/2022. We have been asked to evaluate the patient for chest pain. Patient states that she had a pain on the left side of her sternum like somebody had hit her. It was therefore second and went away and that happened last night and again this morning. She denies having any lightheadedness or dizziness, no shortness of breath. Pain did not seem to linger or be related to activity. She feels like pain is related to gas. The patient states that she had a bad reaction to a dobutamine stress test done many years ago and has refused to undergo any further stress testing with Dr. Velázquez during office visits and also states the same at this time. EKG sinus rhythm with left bundle branch block Laboratory studies: Chest x-ray: Mild cardiomegaly and COPD Home cardiac medications: Coreg 12.5 mg twice daily, losartan/100 chlorothiazide 5012 0.5 mg half tablet daily, potassium chloride 20 mEq twice daily Echocardiogram 05/2022 revealed normal EF, mild TR, mild MR, aortic root 3.9 cm, estimated RVSP 42 mmHg Dobutamine stress test 07/2009: Normal EF, normal Review Of Systems: At the time of my evaluation: Constitutional: No fever, no chills. No weakness, fatigue or lethargy. EENT: No headache. No dizziness. Lungs: No shortness of breath, cough, no sputum production. No wheezing. Cardiovascular: No chest pain, no lower extremity edema. No palpitations. No paroxysmal nocturnal dyspnea. No orthopnea. No lightheadedness or dizziness. No syncopal episodes. Abdominal: No abdominal pain. No nausea, vomiting. No diarrhea. No constipation. No bloody or tarry stools. Musculoskeletal: No myalgias. No muscle weakness, no frequent falls. No back pain. No neck pain. Integumentary: No wounds. Neurologic: No aphasia. No facial droop. No change in mentation. No head injury. No headache. Physical examination: Gen: This is a 76 year old female patient, she is resting on ER stretcher and appears to be comfortable and in no acute distress VS: reviewed HEENT: Head is atraumatic, normocephalic. Pupils equal, round. Sclerae is anicteric. NECK: Supple. No JVD. LUNGS: Clear to auscultation. No wheezes or rhonchi. No intercostal retract ions. HEART: Regular rate and rhythm. 2/6 systolic ejection murmur at the base. ABDOMEN: Soft. No tenderness. EXTREMITIES: No pedal edema. No calf tenderness. NEUROLOGICAL: Patient is awake, alert and oriented x3. Assessment: Chest pain, acute coronary syndrome ruled out Hypertension Dyslipidemia Chronic dyspnea on exertion Plan: Continue home cardiac medications Obtain 2-D echocardiogram and Doppler study to assess cardiac structure and function Further recommendations to follow based upon clinical course Thank you kindly for this consultation. Nurse practitioner note has been reviewed, I agree with documented findings and plan of care. Patient was seen and examined. Past Medical History Past Medical History: Heart Failure, Hyperlipidemia, Hypertension Additional Past Medical History / Comment(s): aortic aneyurism, GOUT. History of Any Multi-Drug Resistant Organisms: None Reported Past Surgical History: Cholecystectomy, Hysterectomy, Orthopedic Surgery Past Psychological History: Anxiety Smoking Status: Never smoker Past Alcohol Use History: None Reported Past Drug Use History: None Reported Medications and Allergies Home Medications Medication Instructions Recorded Confirmed Type ALPRAZolam [Xanax] 0.25 mg PO BID@0800,199902/24/22 08/20/22 History Losartan/Hydrochlorothiazide 0.5 tab PO DAILY@0800 02/24/22 08/20/22 History [Losartan-Hctz 50-12.5 mg Tab] Potassium Chloride ER [K-Dur 20] 20 meq PO BID@0800,1400 02/24/22 08/20/22 History allopurinoL 300 mg PO DAILY@79902/24/22 08/20/22 History carvediloL [Coreg] 12.5 mg PO BID@799,199902/24/22 08/20/22 History Ergocalciferol [Vitamin D2 (1250 1,250 mcg PO KIRAN 08/20/22 08/20/22 History Mcg = 00224 Iu)] Allergies Allergy/AdvReac Type Severity Reaction Status Date / Time atorvastatin [From Lipitor] Allergy Rash/Hives Verified 08/20/22 09:01 codeine AdvReac Nausea & Verified 08/20/22 09:01 Vomiting Physical Exam Vitals: Vital Signs Temp Pulse Resp BP Pulse Ox 08/20/22 12:24 97.9 F 75 18 129/62 97 08/20/22 09:30 71 18 143/68 96 08/20/22 08:16 98.3 F 90 20 165/103 97 Intake and Output 08/19/22 08/20/22 08/20/22 22:59 06:59 14:59 Other: Weight 86.183 kg Results 08/20/22 08:35 08/20/22 08:35 Cardiac Enzymes 08/20/22 08/20/22 08/20/22 Range/Units 08:35 08:35 10:41 AST 26 (14-36) U/L Troponin I <0.012 <0.012 (0.000-0.034) ng/mL Coagulation 08/20/22 Range/Units 08:35 PT 10.3 (9.0-12.0) sec APTT 25.0 (22.0-30.0) sec CBC 08/20/22 Range/Units 08:35 WBC 10.6 (3.8-10.6) k/uL RBC 4.28 (3.80-5.40) m/uL Hgb 14.5 (11.4-16.0) gm/dL Hct 40.4 (34.0-46.0) % Plt Count 320 (150-450) k/uL Comprehensive Metabolic Panel 08/20/22 Range/Units 08:35 Sodium 138 (137-145) mmol/L Potassium 3.8 (3.5-5.1) mmol/L Chloride 104 (98-107) mmol/L Carbon Dioxide 30 (22-30) mmol/L BUN 11 (7-17) mg/dL Creatinine 0.67 (0.52-1.04) mg/dL Glucose 118 H (74-99) mg/dL Calcium 9.1 (8.4-10.2) mg/dL AST 26 (14-36) U/L ALT 16 (4-34) U/L Alkaline Phosphatase 122 (38-126) U/L Total Protein 6.7 (6.3-8.2) g/dL Albumin 3.9 (3.5-5.0) g/dL Current Medications Generic Name Dose Route Start Last Admin Trade Name Freq PRN Reason Stop Dose Admin Alprazolam 0.25 mg 08/20/22 20:00 Alprazolam 0.25 Mg Tab PO BID@0800,1999 [facility] Aspirin 325 mg 08/21/22 09:00 Aspirin 325 Mg Tab PO DAILY [facility] Carvedilol 12.5 mg 08/20/22 20:00 Carvedilol 12.5 Mg Tab PO BID@08 [facility] HCTZ/Losartan Potassium 0.5 each 08/21/22 08:00 Losartan-Hctz 50-12.5 Mg 1 Each Tab PO DAILY@0800 [facility] Nitroglycerin 0.4 mg 08/20/22 10:17 Nitroglycerin Sl Tabs 0.4 Mg Tab SUBLINGUAL Q5M PRN Chest Pain Nitroglycerin 1 inch 08/20/22 12:00 Nitroglycerin Oint 1 Inch/Gm Packet TOPICAL Q6HR [facility] Potassium Chloride 20 meq 08/20/22 14:00 Potassium Chloride Er 20 Meq Tab.Er PO BID@0800,1400 [facility] Intake and Output 08/19/22 08/20/22 08/20/22 22:59 06:59 14:59 Other: Weight 86.183 kg Patient Weight 08/21/22 06:59 Weight 86.183 kg 08/20/22 08:35 08/20/22 08:35
[2022-08-20] MEDS: POTASSIUM CHLORIDE ER 20 MEQ TAB.ER PO SCH (15:33)
--- NOTE | 2022-08-20 15:42 | P.HPIM ---
History of Present Illness H&P Date: 08/20/22 Jeramie Murray, is a 76 year old female who presented to [facility] emergency room with a chief complaint of chest pain, patient describes an episode of chest discomfort [place] with an episode of diaphoresis. She was evaluated in the emergency room vital examination on presentation revealed a temperature of 98.3 pulse 90 respiration 20 blood pressure 165/103 pulse ox 97% on room air Laboratory data revealed a white blood count of 10.6 hemoglobin 14.5 platelet count 320 d-dimer 0.29 troponin 0.012 Testing in the emergency room revealed EKG revealed sinus rhythm with left bundle branch block, chest x-ray revealed evidence of cardiomegaly and COPD Patient was admitted to medical floor for further evaluation and treatment, cardiology consultation was requested. Past medical history is significant for history of hypertension, history of hyperlipidemia, history of gout, history of vitamin D deficiency and history of osteoarthritis, history of descending thoracic aortic aneurysm On review of systems there is no fever or chills no headache or dizziness no mary rtness of breath no cough no nausea or vomiting no abdominal pain no diarrhea no blood in stools no burning with urination no frequency or urgency and no hematuria Past Medical History Past Medical History: Heart Failure, Hyperlipidemia, Hypertension Additional Past Medical History / Comment(s): aortic aneyurism, GOUT. History of Any Multi-Drug Resistant Organisms: None Reported Past Surgical History: Cholecystectomy, Hysterectomy, Orthopedic Surgery Past Psychological History: Anxiety Smoking Status: Never smoker Past Alcohol Use History: None Reported Past Drug Use History: None Reported Medications and Allergies Home Medications Medication Instructions Recorded Confirmed Type ALPRAZolam [Xanax] 0.25 mg PO BID@0800,199902/24/22 08/20/22 History Losartan/Hydrochlorothiazide 0.5 tab PO DAILY@0800 02/24/22 08/20/22 History [Losartan-Hctz 50-12.5 mg Tab] Potassium Chloride ER [K-Dur 20] 20 meq PO BID@0800,139902/24/22 08/20/22 History allopurinoL 300 mg PO DAILY@0800 02/24/22 08/20/22 History carvediloL [Coreg] 12.5 mg PO BID@08,199902/24/22 08/20/22 History Ergocalciferol [Vitamin D2 (1250 1,250 mcg PO KIRAN 08/20/22 08/20/22 History Mcg = 05230 Iu)] Allergies Allergy/AdvReac Type Severity Reaction Status Date / Time atorvastatin [From Lipitor] Allergy Rash/Hives Verified 08/20/22 09:01 codeine AdvReac Nausea & Verified 08/20/22 09:01 Vomiting Physical Exam Vitals: Vital Signs Temp Pulse Resp BP Pulse Ox 08/20/22 12:24 97.9 F 75 18 129/62 97 08/20/22 09:30 71 18 143/68 96 08/20/22 08:16 98.3 F 90 20 165/103 97 Intake and Output 08/19/22 08/20/22 08/20/22 22:59 06:59 14:59 Other: Weight 86.183 kg In general patient is alert and oriented x 3 in no distress HEENT head normocephalic and atraumatic Neck is supple no JVD no goiter no lymphadenopathy no carotid bruit Chest examination is clear to auscultation no crackles no wheezing Cardiac exam reveals regular heart sounds S1 and S2 no gallops no murmurs Abdomen is soft nontender no organomegaly with normal bowel sounds Extremity exam reveals no edema no cyanosis or clubbing Neurological examination reveals no gross focal deficits Results CBC & Chem 7: 08/20/22 08:35 08/20/22 08:35 Labs: Abnormal Lab Results - Last 24 Hours (Table) 08/20/22 08/20/22 Range/Units 08:35 08:35 RDW 16.5 H (11.5-15.5) % Glucose 118 H (74-99) mg/dL Assessment and Plan Plan: Episode of chest pain Underlying history of hypertension Underlying history of hyperlipidemia Underlying history of osteoarthritis Underlying history of gout Underlying history of vitamin D deficiency History of descending thoracic aortic aneurysm At this time patient is admitted to telemetry floor Serial EKG and cardiac enzymes were ordered Home medications reviewed and reordered Cardiology consultation requested Will follow closely
--- NOTE | 2022-08-20 17:59 | CA ---
Transthoracic Echo Report Name: Jeramie Murray Age: 76 Gender: F : 1945 Exam Date: 08/20/2022 13:01 Exam Location: [place] [facility] Ht (in): 62 Wt (lb): 190 Ordering Physician: Margot Philip Attending/Referring Phys: [id number], Tamera Lead Machinist Caden Franklin, OMAR Procedure CPT: Indications: LVF Cardiac Hx: COVID -19 infection 2021. Pulmn. emphysema; Technical Quality: Poor Contrast 1: Lumason Total Dose (mL): 4 Contrast 2: Total Dose (mL): MEASUREMENTS (Male / Female) Normal Values 2D ECHO LV Diastolic Diameter PLAX 4.5 cm 4.2 - 5.9 / 3.9 - 5.3 cm LV Systolic Diameter PLAX 4.2 cm IVS Diastolic Thickness 1.3 cm 0.6 - 1.0 / 0.6 - 0.9 cm LVPW Diastolic Thickness 1.2 cm 0.6 - 1.0 / 0.6 - 0.9 cm LV Relative Wall Thickness 0.6 RV Internal Dim ED PLAX 2.9 cm LVOT Diameter 1.9 cm LA Systolic Diameter LX 4.0 cm 3.0 - 4.0 / 2.7 - 3.8 cm M-MODE Aortic Root Diameter MM 3.0 cm LA Systolic Diameter MM 4.6 cm LA Ao Ratio MM 1.5 AV Cusp Separation MM 1.7 cm DOPPLER AV Peak Velocity 120.6 cm/s AV Peak Gradient 5.8 mmHg MV Peak Velocity 116.6 cm/s MV Peak Gradient 5.4 mmHg MV Mean Velocity 65.9 cm/s MV Mean Gradient 2.0 mmHg MV Velocity Time Integral 22.5 cm MV E' Velocity 5.2 cm/s TR Peak Velocity 175.8 cm/s TR Peak Gradient 12.4 mmHg Right Ventricular Systolic Press 17.4 mmHg PV Peak Velocity 135.3 cm/s PV Peak Gradient 7.3 mmHg FINDINGS Left Ventricle Left ventricular ejection fraction is estimated at 50-55 %. ;Grade 1 diastolic dysfunction. Normal basal systolic function. Right Ventricle Right ventricle not well visualized. Right Atrium Right atrium not well visualized. Left Atrium Left atrium not well visualized. Mild left atrial dilatation. Mitral Valve Mitral valve thickened. [id number] mitral stenosis. Trace to mild mitral regurgitation. Aortic Valve Aortic valve not well visualized. Trileaflet aortic valve. Diffuse thickening (sclerosis) of the aortic valve cusps without reduced excursion. Tricuspid Valve Mild tricuspid regurgitation. Pulmonic Valve Valvular pulmonic stenosis PV max- 135 m/s Pericardium Mild-moderate PE especially oon the RV zone with sero-fibrinous collection. Aorta Aortic root and proximal ascending aorta not well visualized. CONCLUSIONS Technically difficult study with suboptimal, off axis acoustic windows LV function appears normal Pericardial space around the right ventricle, appears is an organized old pericardial effusion Separate epicardial fat layer visible Previewed by: Dr. Dexter Serrano MD (Electronically Signed) Final Date: 20 August 2022 17:59
[2022-08-20] MEDS: ALPRAZolam 0.25 MG TAB PO SCH (20:17)
[2022-08-20] MEDS: carvediloL 12.5 MG TAB PO SCH (20:17)
[2022-08-21] MEDS: NITROGLYCERIN OINT 1 INCH/GM PACKET TOPICAL SCH (05:24)
[2022-08-21] MEDS ORDERED: allopurinoL 300 MG TAB PO SCH (08:00)
[2022-08-21] MEDS ORDERED: LOSARTAN-HCTZ 50-12.5 MG 1 EACH TAB PO SCH (08:00)
[2022-08-21 08:26] VITALS: BP 120/75; PULSE 65; RESP 16; TEMP 97.9
[2022-08-21] MEDS ORDERED: ASPIRIN 325 MG TAB PO SCH (09:00)
[2022-08-21] MEDS: ALPRAZolam 0.25 MG TAB PO SCH (09:49)
[2022-08-21] MEDS: POTASSIUM CHLORIDE ER 20 MEQ TAB.ER PO SCH (09:50)
[2022-08-21] MEDS: carvediloL 12.5 MG TAB PO SCH (09:50)
--- NOTE | 2022-08-21 09:53 | P.DS ---
Providers Date of admission: 08/20/22 10:18 Expected date of discharge: 08/21/22 Attending physician: Miguelito Palmer Consults: 08/20/22 10:17 Consult Physician Urgent Consulting Provider: [facility] Consult Reason/Comments: Chest pain Do you want consulting provider notified?: Yes Primary care physician: Miguelito Palmer [facility] Course: Discharge diagnosis Episode of chest pain troponin negative. Patient Declined stress Underlying history of hypertension Underlying history of hyperlipidemia Underlying history of osteoarthritis Underlying history of gout Underlying history of vitamin D deficiency History of descending thoracic aortic aneurysm Hospital course Jeramie Murray, is a 76 year old female who presented to [facility] emergency room with a chief complaint of chest pain, patient describes an episode of chest [place] an episode of diaphoresis. She was evaluated in the emergency room vital examination on presentation revealed a temperature of 98.3 pulse 90 respiration 20 blood pressure 165/103 pulse ox 97% on room air Laboratory data revealed a white blood count of 10.6 hemoglobin 14.5 platelet count 320 d-dimer 0.29 troponin 0.012 Testing in the emergency room revealed EKG revealed sinus rhythm with left bundle branch block, chest x-ray revealed evidence of cardiomegaly and COPD Patient was admitted to medical floor for further evaluation and treatment, cardiology consultation was requested. Past medical history is significant for history of hypertension, history of hyperlipidemia, history of gout, history of vitamin D deficiency and history of osteoarthritis, history of descending thoracic aortic aneurysm On review of systems there is no fever or chills no headache or dizziness no shortness of breath no cough no nausea or vomiting no abdominal pain no diarrhea no blood in stools no burning with urination no frequency or urgency and no hematuria On 08/21/2022 patient is alert and oriented 3. Patient has been chest pain- free. Patient was evaluated by cardiology services has been cleared for discharge. Per cardiology team patient refused stress test and have the past she did follow up with cardiology services in office for further management. Patient denies chest pain or shortness breath. Patient denies nausea vomiting or diarrhea. Patient denies urinary burning. Patient Condition at Discharge: Stable Plan - Discharge Summary Discharge Rx Participant: No New Discharge Prescriptions: Continue Potassium Chloride ER [K-Dur 20] 20 meq PO BID@0800,1400 ALPRAZolam [Xanax] 0.25 mg PO BID@0800,2000 Losartan/Hydrochlorothiazide [Losartan-Hctz 50-12.5 mg Tab] 0.5 tab PO DAILY@0800 allopurinoL 300 mg PO DAILY@0800 carvediloL [Coreg] 12.5 mg PO BID@799,1999 Ergocalciferol [Vitamin D2 (1250 Mcg = 90509 Iu)] 1,250 mcg PO KIRAN Discharge Medication List ALPRAZolam [Xanax] 0.25 mg PO BID@08,199902/24/22 [History] Losartan/Hydrochlorothiazide [Losartan-Hctz 50-12.5 mg Tab] 0.5 tab PO DAILY@0802/24/22 [History] Potassium Chloride ER [K-Dur 20] 20 meq PO BID@0800,1400 02/24/22 [History] allopurinoL 300 mg PO DAILY@0800 02/24/22 [History] carvediloL [Coreg] 12.5 mg PO BID@0800,199902/24/22 [History] Ergocalciferol [Vitamin D2 (1250 Mcg = 04598 Iu)] 1,250 mcg PO KIRAN 08/20/22 [History] Follow up Appointment(s)/Referral(s): Cassie Velázquez MD [STAFF PHYSICIAN] - 2 Weeks Miguelito Palmer MD [Primary Care Provider] - 1-2 days Activity/Diet/Wound Care/Special Instructions: Activity as tolerated diet heart healthy Discharge Disposition: HOME SELF-CARE
[2022-08-21 10:58] LABS: Basophils # (A) 0.06 X 10*3/uL (0.00-0.10); Basophils % (A) 0.6 %; Eosinophils # (A) 0.37 X 10*3/uL (0.04-0.35); Eosinophils % (A) 3.8 %; HCT 39.7 % (37.2-46.3); HGB 12.7 g/dL (12.0-15.0); Immature Grans, Automated 1.3 %; Lymphocytes # (A) 2.92 X 10*3/uL (0.90-5.00); Lymphocytes % (A) 30.2 %; MCH 31.1 pg (27.0-32.0); MCV 97.1 fL (80.0-97.0); Mean Platelet Volume 9.7 fL (9.5-12.2); Monocytes # (A) 1.25 X 10*3/uL (0.20-1.00); Monocytes % (A) 12.9 %; NRBC Per 100 WBC 0 /100 WBCS (0.0-0.0); Neutrophils # (A) 4.93 X 10*3/uL (1.80-7.70); Neutrophils % (A) 51.2 %; Platelet Count 303 X 10*3/uL (140-440); RBC 4.09 X 10*6/uL (4.10-5.20); RDW 15.5 % (11.5-14.5); WBC 9.66 X 10*3/uL (4.50-10.00)
[2022-08-21 11:09] LABS: ALT 12 U/L (8-44); AST 17 U/L (13-35); African American GFR (CKD) 97.6 (60.0-200.0); Albumin 3.7 g/dL (3.8-4.9); Albumin/Globulin Ratio 1.77 (1.60-3.17); Alkaline Phosphatase 118 U/L (41-126); BUN/Creat Ratio 14.88 Ratio (12.00-20.00); Blood Urea Nitrogen 10.4 mg/dL (9.0-27.0); Calcium 9.2 mg/dL (8.7-10.3); Carbon Dioxide 29.8 mmol/L (20.0-27.5); Chloride 105 mmol/L (96-109); Globulin 2.1 g/dL (1.6-3.3); Glucose 85 mg/dL (70-110); LDL Cholesterol,Calculated 97.7 mg/dL (0.0-131.0); Non-African American GFR(CKD) 84.2 (60.0-200.0); Potassium 4.2 mmol/L (3.5-5.5); Sodium 142 mmol/L (135-145); Total Protein 5.9 g/dL (6.2-8.2); VLDL Calculation 17.08 mg/dL (5.00-40.00)
--- NOTE | 2022-08-21 11:47 | P.PN ---
Subjective Progress Note Date: 08/21/22 History of present illness: This is a 76-year-old female patient of Dr. Velázquez with past medical history of HTN, dyslipidemia. She has had mild stable dyspnea on exertion and followed by Dr. Velázquez, last office visit was 06/18/2022. We have been asked to evaluate the patient for chest pain. Patient states that she had a pain on the left side of her sternum like somebody had hit her. It was therefore second and went away and that happened last night and again this morning. She denies having any lightheadedness or dizziness, no shortness of breath. Pain did not seem to linger or be related to activity. She feels like pain is related to gas. The patient states that she had a bad reaction to a dobutamine stress test done many years ago and has refused to undergo any further stress testing with Dr. Velázquez during office visits and also states the same at this time. EKG sinus rhythm with left bundle branch block Laboratory studies: Chest x-ray: Mild cardiomegaly and COPD Home cardiac medications: Coreg 12.5 mg twice daily, losartan/100 chlorothiazide 5012 0.5 mg half tablet daily, potassium chloride 20 mEq twice daily Echocardiogram 05/2022 revealed normal EF, mild TR, mild MR, aortic root 3.9 cm, estimated RVSP 42 mmHg Dobutamine stress test 07/2009: Normal EF, normal 08/21 Echocardiogram reveals technically difficult study. Pericardial space on the right ventricle appears to have an organized old pericardial effusion. Separate pericardial fat layer visible. EF 50-55%, mild to moderate mitral stenosis, trace to mild mitral regurgitation. Results of echocardiogram reviewed with the patient. She does give history of having Covid in February which most likely has caused the organized pericardial effusion. Patient denies having any chest pain at this time. Heart rate has been in the 60s and 70s, blood pressure 120/75. Physical examination: Gen: This is a 76 year old female patient, she is resting on ER stretcher and appears to be comfortable and in no acute distress VS: reviewed HEENT: Head is atraumatic, normocephalic. Pupils equal, round. Sclerae is anicteric. NECK: Supple. No JVD. LUNGS: Clear to auscultation. No wheezes or rhonchi. No intercostal retract ions. HEART: Regular rate and rhythm. 07/20 systolic ejection murmur at the base. ABDOMEN: Soft. No tenderness. EXTREMITIES: No pedal edema. No calf tenderness. NEUROLOGICAL: Patient is awake, alert and oriented x3. 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 Velázquez in the office in 2 weeks. Nurse practitioner note has been reviewed, I agree with documented findings and plan of care. Patient was seen and examined. Objective - Vital Signs Vital signs: Vital Signs Temp 97.9 F 08/21/22 07:00 Pulse 65 08/21/22 07:00 Resp 16 08/21/22 07:00 BP 120/75 08/21/22 07:00 Pulse Ox 95 08/21/22 07:45 FiO2 Intake & Output 08/20/22 08/21/22 08/21/22 18:59 06:59 18:59 Intake Total 210 Balance 210 Weight 86.183 kg Intake: Oral 210 Other: # Voids 3 2 - Labs CBC & Chem 7: 08/21/22 05:05 08/21/22 05:05 Labs: Abnormal Lab Results - Last 24 Hours (Table) 08/20/22 08/20/22 Range/Units 08:35 08:35 RDW 16.5 H (11.5-15.5) % Glucose 118 H (74-99) mg/dL
[2022-08-23] MEDS ORDERED: ERGOCALCIFEROL 1,250 MCG (50,000 IU) CAPSULE PO SCH (09:00)
== END 2022-08-21 11:55 | disposition home or self-care (01) ==
LOC: EC 08:14 → 6NMEDSUR 10:18
PROVIDERS: ADMIT Internal Medicine; ATTEND Internal Medicine
DX: R07.89 Other chest pain (principal); I11.0 Hypertensive heart disease with heart failure; I50.9 Heart failure, unspecified; I31.39 Other pericardial effusion (noninflammatory); E78.5 Hyperlipidemia, unspecified; I71.23 Aneurysm of the descending thoracic aorta, without rupture; M10.9 Gout, unspecified; F41.9 Anxiety disorder, unspecified; I44.7 Left bundle-branch block, unspecified; J44.9 Chronic obstructive pulmonary disease, unspecified; I08.1 Rheumatic disorders of both mitral and tricuspid valves; R61 Generalized hyperhidrosis; E55.9 Vitamin D deficiency, unspecified; M19.90 Unspecified osteoarthritis, unspecified site; Z79.899 Other long term (current) drug therapy; Z88.5 Allergy status to narcotic agent; Z88.8 Allergy status to other drugs, medicaments and biological substances; Z90.49 Acquired absence of other specified parts of digestive tract; Z90.710 Acquired absence of both cervix and uterus; Z98.890 Other specified postprocedural states; Z82.49 Family history of ischemic heart disease and other diseases of the circulatory system
CPT/HCPCS: 99285; 36415; 94760; 93005; 85379; 80061; 80053 ×2; 83735; 84484; 85025 ×2; 85610; 85730; 71046; G0378 ×2; C8929; Q9950; 93306

== ENCOUNTER → 2022-10-23 | Outpatient (CLI) | payer MEDICARE ==
--- NOTE | 2022-10-26 18:17 | MM ---
Reason for Exam: Screening (asymptomatic). Last screening mammogram was performed 12 month(s) ago. Patient History: Menarche at age 13. First Full-Term at age 18. Left ovary removed at age 66. Right ovary removed at age 66. Hysterectomy at age 66. Postmenopausal. Patient used Estrogen for 2 years. Patient used Progesterone for 2 years. Paternal cousin had breast cancer, age 40. Risk Values: Magy 5 year model risk: 1.3%. NCI Lifetime model risk: 2.4%. Prior Study Comparison: 07/14/2019 Bilateral Screening Mammogram, [facility]. 09/19/2020 Bilateral Screening Mammogram, [facility]. 10/22/2021 Bilateral Screening Mammogram, [facility]. Tissue Density: There are scattered fibroglandular densities. Findings: Analyzed By CAD. Unchanged asymmetric density at the right axillary tail. Benign bilateral vascular calcifications. There is no suspicious group of microcalcifications or new suspicious mass in either breast. Overall Assessment: Benign, BI-RAD 2 Management: Screening Mammogram of both breasts in 1 year. . Patient should continue monthly self-breast exams. A clinical breast exam by your physician is recommended on an annual basis. This exam should not preclude additional follow-up of suspicious palpable abnormalities. Note on Magy scores and lifetime risk: 1. A Magy score greater than 3% is considered moderate risk. If this is the case, consider specialist referral to assess eligibility for a risk reducing agent. 2. If overall lifetime risk for the development of breast cancer is 20% or higher, the patient may qualify for future screening with alternating mammogram and breast MRI. Electronically signed and approved by: Janae Bo M.D. Radiologist
== END | disposition home or self-care (01) ==
LOC: RADMAMWWP 10:41
PROVIDERS: ATTEND Internal Medicine
DX: Z12.31 Encounter for screening mammogram for malignant neoplasm of breast (principal); Z78.0 Asymptomatic menopausal state; Z80.3 Family history of malignant neoplasm of breast
CPT/HCPCS: 77063; 77067

== ENCOUNTER → 2023-10-11 | Outpatient (CLI) | payer MEDICARE ==
--- NOTE | 2023-10-11 08:56 | MM ---
Reason for Exam: Clinical finding. Last screening mammogram was performed 11 month(s) ago. Indicated Problems: Pain of the left side. Patient History: Menarche at age 13. First Full-Term at age 18. Left ovary removed at age 66. Right ovary removed at age 66. Hysterectomy at age 66. Postmenopausal. Patient used Estrogen for 2 years. Patient used Progesterone for 2 years. Paternal cousin had breast cancer, age 40. Risk Values: Magy 5 year model risk: 1.2%. NCI Lifetime model risk: 2.2%. Prior Study Comparison: 05/20/2018 Bilateral Screening Mammogram, [facility]. 07/14/2019 Bilateral Screening Mammogram, [facility]. 09/19/2020 Bilateral Screening Mammogram, [facility]. 10/22/2021 Bilateral Screening Mammogram, [facility]. 10/23/2022 Bilateral MG 3D screening mammo w/cad, [facility]. Tissue Density: There are scattered areas of fibroglandular density. Findings: Analyzed By CAD. No new suspicious masses, calcifications or distortions. Overall Assessment: Negative, BI-RAD 1 Management: Screening Mammogram of both breasts in 1 year. Results were given to the patient verbally at the time of exam. Patient should continue monthly self-breast exams. A clinical breast exam by your physician is recommended on an annual basis. This exam should not preclude additional follow-up of suspicious palpable abnormalities. Note on Magy scores and lifetime risk: 1. A Magy score greater than 3% is considered moderate risk. If this is the case, consider specialist referral to assess eligibility for a risk reducing agent. 2. If overall lifetime risk for the development of breast cancer is 20% or higher, the patient may qualify for future screening with alternating mammogram and breast MRI. Electronically signed and approved by: Rafael Caraballo DO
== END | disposition home or self-care (01) ==
LOC: RADMAMWWP 07:47
PROVIDERS: ATTEND Internal Medicine
DX: R92.323 Mammographic fibroglandular density, bilateral breasts (principal); N64.4 Mastodynia; Z78.0 Asymptomatic menopausal state; Z80.3 Family history of malignant neoplasm of breast
CPT/HCPCS: 77066; G0279; 77062

== ENCOUNTER → 2023-12-27 | Outpatient (CLI) | payer MEDICARE ==
--- NOTE | 2023-12-27 14:54 | US ---
EXAMINATION TYPE: US venous doppler duplex LE LT DATE OF EXAM: 12/27/2023 2:46 PM COMPARISON: NONE CLINICAL INDICATION: Female, 78 years old with history of LLE; M79.662 PAIN IN LEFT LOWER LEG; No hx of DVT. Patient does not take blood thinners. Pain x 1 month. SIDE PERFORMED: Left TECHNIQUE: The lower extremity deep venous system is examined utilizing real time linear array sonog ines with graded compression, doppler sonography and color-flow sonography. VESSELS IMAGED: Common Femoral Vein Deep Femoral Vein Greater Saphenous Vein * Femoral Vein Popliteal Vein Small Saphenous Vein * Proximal Calf Veins (* superficial vessels) Left Leg: No evidence of DVT. IMPRESSION: No evidence of DVT at this time.
== END | disposition home or self-care (01) ==
LOC: RADUSWWP 14:19
PROVIDERS: ATTEND Internal Medicine
DX: M79.662 Pain in left lower leg (principal); R22.42 Localized swelling, mass and lump, left lower limb

== ENCOUNTER → 2024-04-18 | Outpatient (CLI) | payer MEDICARE, OTHER ==
--- NOTE | 2024-04-19 18:40 | US ---
EXAMINATION TYPE: US kidneys/renal and bladder DATE OF EXAM: 04/18/2024 COMPARISON: US 2019 CLINICAL INDICATION: Female, 78 years old with history of R10.9 UNSPECIFIED ABDOMINAL PAIN; TECHNIQUE: Grayscale imaging of the bilateral kidneys and urinary bladder: FINDINGS: EXAM MEASUREMENTS: Right Kidney: 10.1 x 4.0 x 5.1 cm Left Kidney: 10.1 x 4.7 x 5.3 cm Difficult and limited study due to patient body habitus Right Kidney: visualized portions appear wnl Left Kidney: visualized portions appear wnl Bladder: wnl Bilateral Jets seen: yes IMPRESSION: 1. Unremarkable renal ultrasound. [facility], , 04/19/2024 6:38 PM
== END | disposition home or self-care (01) ==
LOC: RADUSWWP 15:47
PROVIDERS: ATTEND Internal Medicine
DX: R10.9 Unspecified abdominal pain (principal)
CPT/HCPCS: 76770

== ENCOUNTER → 2024-06-19 | Outpatient (CLI) | payer MEDICARE, OTHER ==
[2024-06-19 13:03] LABS: African American GFR (CKD) 88 (>60 ml/min/1.73 sqM); Blood Urea Nitrogen 10 mg/dL (7-17); Non-African American GFR(CKD) 77 (>60 ml/min/1.73 sqM)
--- NOTE | 2024-06-19 13:53 | CT ---
EXAMINATION TYPE: CT angio chest CT DLP: 1153.7 mGycm, Automated exposure control for dose reduction was used. DATE OF EXAM: 06/19/2024 1:30 PM COMPARISON: CTA chest 01/13/2021, 12/19/2019 CLINICAL INDICATION:Female, 78 years old with history of I71.20 thoracic aneurysm; thoracic aneurysm TECHNIQUE/CONTRAST: CTA scan of the thorax is performed without and with IV Contrast, patient injected with 80 mL of Isov ue 370. 3D reconstructed images are created on an independent workstation and reviewed.. FINDINGS: Lungs/Pleura: No evidence of focal consolidation, pleural effusion or pneumothorax. Minimal right low er lobe subsegmental atelectasis. No suspicious pulmonary nodule or mass. Airway: Large airways are patent. Heart: The heart is mildly enlarged for size.. No pericardial effusion. Small coronary artery calcifi cations. Vasculature: Mild atherosclerotic calcification of the aorta is branches. Conventional three-vessel a ortic arch. No intramural hematoma or dissection. Stable aortic root maximum caliber of 3.6 cm. Stabl e ascending aortic ectasia measuring up to 3.8 cm. The descending thoracic aorta measures up to 2.3 c m per No filling defect to suggest pulmonary embolism. Mediastinum: No evidence of adenopathy. Musculoskeletal: Mild degenerative disc disease changes are present throughout the thoracolumbar spin e. No acute osseous abnormality. Soft Tissues: Unremarkable. Lower neck: No significant findings. Upper Abdomen: Gallbladder is surgically absent. Fatty infiltration of the pancreas. Small hiatal her arash. IMPRESSION: Stable ascending thoracic aorta ectasia measuring up to 3.8 cm. No evidence for intramural hematoma o r dissection. [facility], , 06/19/2024 1:50 PM
== END | disposition home or self-care (01) ==
LOC: RADCTMAIN 12:30
PROVIDERS: ATTEND Internal Medicine Interventional Cardiology
DX: I71.20 Thoracic aortic aneurysm, without rupture, unspecified (principal)
CPT/HCPCS: 82565; 84520; 71275; 36415; Q9967